=== PATIENT | male | born 1995 | race Caucasian/White ===

== ENCOUNTER 2023-05-06 13:15 | Emergency (ER) | payer MEDICAID ==
[~2023-05-06] VITALS: Ht 170.2 cm; Wt 79.4 kg
[2023-05-06 13:35] VITALS: BP 140/85; PULSE 65; RESP 14; TEMP 98.4; O2SAT 96
[2023-05-06] MEDS ORDERED: KETOROLAC 60 MG/2 ML VIAL IM ONE (14:05)
== END 2023-05-06 14:43 | disposition home or self-care (01) ==
LOC: MED 13:15
DX: S51.031A Puncture wound without foreign body of right elbow, initial encounter (principal); X58.XXXA Exposure to other specified factors, initial encounter; Y93.89 Activity, other specified; Y92.89 Other specified places as the place of occurrence of the external cause; Y99.8 Other external cause status
CPT/HCPCS: 96372; 99283; J1885

== ENCOUNTER 2023-06-07 21:33 | Emergency (ER) | payer MEDICAID ==
[~2023-06-07] VITALS: Ht 170.2 cm; Wt 81.6 kg
[2023-06-07 21:40] VITALS: BP 150/81; PULSE 90; RESP 16; TEMP 98; O2SAT 96
[2023-06-07 22:07] VITALS: O2SAT 96
[2023-06-07] MEDS ORDERED: LIDOCAINE/EPI 2% 1:100000 20 ML VIAL INJ ONE (22:30)
[2023-06-08] MEDS ORDERED: NAPR-54 PO (00:10)
[2023-06-08] MEDS ORDERED: BACI-418 TP (00:10)
[2023-06-08] MEDS ORDERED: BACITRACIN OINT 500 UNITS/GM PKT TP ONE ×2 (00:12→00:15)
== END 2023-06-08 00:22 | disposition home or self-care (01) ==
LOC: MED 21:33
DX: S61.215A Laceration without foreign body of left ring finger without damage to nail, initial encounter (principal); S60.222A Contusion of left hand, initial encounter; Z79.1 Long term (current) use of non-steroidal anti-inflammatories (NSAID); Z79.2 Long term (current) use of antibiotics; W26.0XXA Contact with knife, initial encounter; Y93.89 Activity, other specified; Y92.89 Other specified places as the place of occurrence of the external cause; Y99.8 Other external cause status
CPT/HCPCS: 12001; 73130; 99283; J2001